=== PATIENT | male | born 1970 | race Caucasian/White ===

== ENCOUNTER 2016-10-30 16:16 | Emergency (ER) | payer SELFPAY ==
--- NOTE | 2016-10-30 17:03 | UC ---
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 No shortness of breath, able to void normally, no nausea or vomiting. Does not feel very well, but was working in attic space at high temperature for about 5 hours. Pain worsened by getting in and out of truck and all movements. Took acetaminophen 1000mg at the time, with a little relief of pain. Hx of abdominal surgery. - History of Current Complaint Chief Complaint: UCAbdominalPain Stated Complaint: LEFT LOWER ABD MUSCLE PULL W/C Time Seen by Provider: 10/30/16 17:01 Hx Obtained From: Patient Onset/Duration: Sudden Onset, Lasting Hours - 4, Still Present Severity Initially: Moderate Severity Currently: Moderate Pain Intensity: 8 Pain Scale Used: 0-10 Numeric Location: Other - left mid abdominal area. Radiates: No Character: Cramping, Sharp Aggravating Factor(s):: Movement Alleviating Factor(s): Rest - Risk Factors Testicular Torsion: Negative Cardiac Risk Factors: Hypertension - Allergies/Home Medications Allergies/Adverse Reactions: Allergies Allergy/AdvReac Type Severity Reaction Status Date / Time No Known Allergies Allergy Verified 10/30/16 16:30 Home Medications: Home Medications NK [No Home Medications Reported] 10/30/16 [History Confirmed 10/30/16] PMH/Surg Hx/FS Hx/Imm Hx - Additional Past Medical History Additional PMH: Has not seen PMD in 4 years, but blood pressures have run high in the past. Not treated. Aware of elevation. History of testicular cancer - Surgical History Surgical History: Yes Surgery Procedure, Year, and Place: testicular surgery - Family History Known Family History: Positive: Respiratory Disease - mother lung CA, Other - father of stroke. - Social History Occupation: Employed Full-time - by [employer] Lives: With Family Alcohol Use: Occasionally Substance Use Type: None Smoking Status (MU): Never Smoked Tobacco Review of Systems Constitutional: Other - pain in the left abdomen with deep inspiration. Feeling unwell, but worked all day in an attic room with high ambient temperature. ENT: Other Cardiovascular: Other - elevated blood pressure in the past, not treated. He has not seen his PMD in about 4 years. No chest pain or shortness of breath. Musculoskeletal: Myalgia - pain in the left abdominal wall. All Other Systems Reviewed And Are Negative: Yes Physical Exam Triage Information Reviewed: Yes Appearance: Pain Distress - moderate with movement., Obese Vital Signs: Initial Vital Signs Temp 99.8 F 10/30/16 16:26 Pulse 95 10/30/16 16:26 Resp 17 10/30/16 16:26 BP 161/73 10/30/16 16:26 Pulse Ox 96 10/30/16 16:26 Vital Signs Reviewed: Yes Eyes: Positive: Conjunctiva Clear ENT: Positive: Pharynx normal Neck: Positive: Supple, Nontender, No Lymphadenopathy Respiratory: Positive: Lungs clear, Normal breath sounds Cardiovascular: Positive: RRR, No Murmur Abdomen Description: Positive: No Organomegaly, Soft, Other: - midline scar epigastrium to above pubis-->no evidence of incisional hernia. Tender to palpation in the lateral oblique muscles. Pain with movement. No abdominal guarding or rebound. Bowel Sounds: Positive: Present Musculoskeletal: Positive: Strength Intact, ROM Limited @ - uncomfortable with flexion at the waist. Neurological Exam: Normal Neurological: Positive: Alert, Muscle Tone Normal Psychological Exam: Normal Skin Exam: Normal Abd Pain Male Course/Dx - Course Course Of Treatment: analgesics and rest. - Differential Dx/Clinical Impression Differential Diagnosis/HQI/PQRI: Other - hernia, muscle strain Provider Diagnoses: strain left abdominal muscles (obliques) Discharge - Discharge Plan Condition: Stable Disposition: HOME Patient Education Materials: Muscle Strain (ED) Forms: *Work Release Referrals: No Primary Care Phys,NOPCP [Primary Care Provider] - Additional Instructions: Today's blood pressure reading was elevated to 161/73, and decreased to 134/87 at discharge (still a little elevated). Please ensure that you schedule a visit with your primary care provider. You can use acetaminophen 100mg up to 4 times per day for pain, and can use additional ibuprofen 600mg 2 or 3 times daily with caution. Ensure that you take it with food. Rest at home tomorrow, anticipate return to work on 11/03/16
[2016-10-30] MEDS ORDERED: Ibuprofen TAB* 400 MG PO ONE (17:23)
[2016-10-30 17:32] VITALS: BP 134/87
== END 2016-10-30 17:42 | disposition home or self-care (01) ==
LOC: UCCORT 16:16
DX: S39.011A Strain of muscle, fascia and tendon of abdomen, initial encounter (principal); X50.0XXA Overexertion from strenuous movement or load, initial encounter; Y93.89 Activity, other specified; Y92.008 Other place in unspecified non-institutional (private) residence as the place of occurrence of the external cause; Y99.0 Civilian activity done for income or pay; E66.9 Obesity, unspecified
CPT/HCPCS: 99202; A9270-GY; G0463

== ENCOUNTER 2017-01-19 07:00 | Emergency (ER) | payer OTHER ==
--- NOTE | 2017-01-19 07:12 | UC ---
Skin Complaint HPI - HPI Summary HPI Summary: 46 yo male stung on right thumb 3 days ago while at work now pain and redness extending to dorsum or hand and radial aspect of forearm - History of Current Complaint Chief Complaint: UCSkin Time Seen by Provider: 01/19/17 07:08 Stated Complaint: RIGHT HAND BEE STING-WC Hx Obtained From: Patient Onset/Duration: Gradual Onset Onset Severity: Moderate Current Severity: Moderate Pain Intensity: 3 Pain Scale Used: 0-10 Numeric Location: Discrete Character: Swelling, Pain, Redness Aggravating: Touch Alleviating: Antihistamines Associated Signs & Symptoms: Positive: Tenderness - Allergy/Home Medications Allergies/Adverse Reactions: Allergies Allergy/AdvReac Type Severity Reaction Status Date / Time No Known Allergies Allergy Verified 01/19/17 07:04 Home Medications: Home Medications diPHENhydraMINE PO* [Benadryl PO 25 MG TAB*] 50 mg PO ONCE PRN 01/19/17 [ History Confirmed 01/19/17] Review of Systems Constitutional: Negative Skin: Negative Eyes: Negative ENT: Negative Respiratory: Negative Cardiovascular: Negative Gastrointestinal: Negative Genitourinary: Negative Motor: Negative Neurovascular: Negative Musculoskeletal: Negative Neurological: Negative Psychological: Negative All Other Systems Reviewed And Are Negative: Yes PMH/Surg Hx/FS Hx/Imm Hx Previously Healthy: Yes Cardiovascular History: Hypertension - never treated Cancer History: Other Other Cancer History: testicular - Surgical History Surgical History: Yes Surgery Procedure, Year, and Place: testicular surgery - Family History Known Family History: Positive: Hypertension, Respiratory Disease - mother lung CA, Other - father of stroke. - Social History Alcohol Use: Occasionally Substance Use Type: None Smoking Status (MU): Current Some Day Smoker Type: Smokeless Tobacco Amount Used/How Often: occasional use Physical Exam Triage Information Reviewed: Yes Appearance: Well-Appearing, No Pain Distress, Well-Nourished Vital Signs: Initial Vital Signs Temp 98.2 F 01/19/17 07:05 Pulse 57 01/19/17 07:05 Resp 16 01/19/17 07:05 BP 155/88 01/19/17 07:05 Pulse Ox 99 01/19/17 07:05 Vital Signs Reviewed: Yes Eyes: Positive: Conjunctiva Clear ENT: Positive: Hearing grossly normal. Negative: Nasal congestion, Nasal drainage, Tonsillar exudate, Trismus, Muffled/hoarse voice Neck: Positive: Supple Respiratory: Positive: Lungs clear, Normal breath sounds, No respiratory distress Cardiovascular: Positive: RRR, No Murmur Course/Dx - Diagnoses Provider Diagnoses: local reaction to insect stings. ? 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
[2017-01-19 07:14] VITALS: BP 155/88
[2017-01-19] MEDS ORDERED: Cephalexin CAP* 500 MG PO ONE (07:17)
[2017-01-19] MEDS ORDERED: predniSONE TAB* 20 MG PO ONE (07:18)
== END 2017-01-19 07:35 | disposition home or self-care (01) ==
LOC: UCCORT 07:00
DX: T63.441A Toxic effect of venom of bees, accidental (unintentional), initial encounter (principal); M79.631 Pain in right forearm; Y92.89 Other specified places as the place of occurrence of the external cause; I10 Essential (primary) hypertension; Z85.47 Personal history of malignant neoplasm of testis; Z72.0 Tobacco use
CPT/HCPCS: 99212; A9270-GY; G0463; J7512

== ENCOUNTER 2017-02-10 10:08 | Emergency (ER) | payer OTHER ==
[2017-02-10] MEDS ORDERED: diPHENhydraMINE IV* 50 MG/ML 1 ml VIAL (BENADRYL) IM ONE (10:13)
[2017-02-10] MEDS ORDERED: methylPREDNISolone 125 MG* 2 ML VIAL IM ONE (10:14)
[2017-02-10] MEDS ORDERED: EPINEPHrine AMP 1 MG/ML IM ONE (10:15)
[2017-02-10 10:43] VITALS: BP 155/87
--- NOTE | 2017-02-10 11:17 | UC ---
Skin Complaint HPI - HPI Summary HPI Summary: Patient presents following a bee sting to the left side of his neck, he complains of a sensation of tightness and closing of his throat. He also states that he has some pain at the site of the sting. He notes no previous allergies or problems from bee stings. - History of Current Complaint Chief Complaint: UCAllergicReaction Time Seen by Provider: 02/10/17 10:11 Stated Complaint: ALLERGIC REACTION Hx Obtained From: Patient Onset/Duration: Sudden Onset Skin Exposure Onset/Duration: Minutes Ago Onset Severity: Moderate Current Severity: Moderate Location: Discrete - left side of neck. Aggravating: Touch Alleviating: Nothing - Allergy/Home Medications Allergies/Adverse Reactions: Allergies Allergy/AdvReac Type Severity Reaction Status Date / Time No Known Allergies Allergy Verified 02/10/17 10:13 Review of Systems Skin: Rash ENT: Other - tighness in throat Respiratory: Negative Cardiovascular: Negative Gastrointestinal: Negative Genitourinary: Negative Neurovascular: Negative Musculoskeletal: Negative All Other Systems Reviewed And Are Negative: Yes PMH/Surg Hx/FS Hx/Imm Hx Previously Healthy: Yes - Surgical History Surgical History: Yes Surgery Procedure, Year, and Place: testicular surgery - Family History Known Family History: Positive: Hypertension, Respiratory Disease - mother lung CA, Other - Social History Occupation: Employed Full-time Alcohol Use: None Substance Use Type: None Smoking Status (MU): Former Smoker Type: Smokeless Tobacco Amount Used/How Often: occasional use Household Exposure Type: Cigarettes Physical Exam Triage Information Reviewed: Yes Appearance: Well-Appearing Vital Signs: Initial Vital Signs Temp 98.0 F 02/10/17 10:10 Pulse 65 02/10/17 10:10 Resp 18 02/10/17 10:10 BP 183/109 02/10/17 10:10 Pulse Ox 96 02/10/17 10:10 Vital Signs Reviewed: Yes Eye Exam: Normal ENT Exam: Normal Neck exam: Normal Neck: Positive: Other: - left anterior base of neck with red, raised circular area, no stinger, or puncture wound noted. Respiratory Exam: Normal Cardiovascular Exam: Normal Abdominal Exam: Normal Musculoskeletal: Positive: Strength Limited @ - left wrist, ROM Limited @ - left wrist, Edema @ - left wrist Course/Dx - Course Course Of Treatment: Patient presents s/p bee sting with tightness in throat, epi 0.3mg, solu-medrol 125mg, and benedryl 50 mg, im was given. Patients symtpoms improved, he was monitored for 30 minutes following with no rebound and was dischared home with additional rx for the same. He was encouraged to go to the er if any other symtpoms returned. at discharge he was stable. - Differential Diagnoses - Skin Complaint Differential Diagnoses: Other - bee sting allergic reaction - Diagnoses Provider Diagnoses: bee sting. allergic reaction Discharge - Discharge Plan Condition: Stable Disposition: HOME Prescriptions: Epinephrine [Epipen 2-Juan] 0.3 mg IM ONCE PRN #1 inj PRN Reason: bee sting Famotidine TAB* [Pepcid 20 MG TAB*] 20 mg PO BID #10 tab diPHENhydraMINE PO* [Benadryl PO 25 MG TAB*] 25 mg PO Q6H PRN #20 tab PRN Reason: allergic reaction predniSONE TAB* [Deltasone TAB*] 20 mg PO DAILY #5 tab Patient Education Materials: Insect Bite or Sting (ED), Allergies (ED) Referrals: No Primary Care Phys,NOPCP [Primary Care Provider] -
== END 2017-02-10 11:15 | disposition home or self-care (01) ==
LOC: UCEAST 10:08
DX: T63.441A Toxic effect of venom of bees, accidental (unintentional), initial encounter (principal); T78.40XA Allergy, unspecified, initial encounter; Z87.891 Personal history of nicotine dependence
CPT/HCPCS: 96372; 99212; G0463; J0171; J1200; J2930

== ENCOUNTER 2018-04-22 07:26 | Emergency (ER) | payer BC, OTHER ==
[2018-04-22 07:40] VITALS: BP 155/99
[2018-04-22] MEDS ORDERED: Azithromycin TAB* 250 MG PO ONE (08:26)
[2018-04-22] MEDS ORDERED: cefTRIAXone VIAL(*) 250 MG VIAL IM ONE (08:26)
[2018-04-22] MEDS ORDERED: Albuterol HFA INHALER* 8 gm MDI INH ONE (08:27)
[2018-04-22] MEDS ORDERED: Lidocaine 1% MPF* 2 ML VIAL INJ ONE (08:33)
[2018-04-22] MEDS ORDERED: cefTRIAXone VIAL(*) 1,000 MG VIAL IM ONE (08:43)
--- NOTE | 2018-04-22 08:43 | ED ---
Respiratory - HPI Summary HPI Summary: pt presents for evaluation of his cough. he states he has been sick for the past 3 weeks. he states his has been sick and he just wants to sleep. he has a productive cough. he states that he has had intermittent occasional wheezing. he denies any chest pain, n/v. - History of Current Complaint Chief Complaint: UCGeneralIllness Stated Complaint: ACHY,COUGH,FATIGUE Hx Obtained From: Patient Onset/Duration: Gradual Onset Initial Severity: Mild Current Severity: Mild Pain Intensity: 8 Character: Wheezing, Cough (Productive) Sputum Amount: Small Sputum Color: Yellow Aggravating Factor(s): URI - Allergy/Home Medications Allergies/Adverse Reactions: Allergies Allergy/AdvReac Type Severity Reaction Status Date / Time No Known Allergies Allergy Verified 04/22/18 07:40 PMH/Surg Hx/FS Hx/Imm Hx Previously Healthy: Yes Endocrine/Hematology History: Denies: Hx Anticoagulant Therapy Respiratory History: Denies: Hx Asthma - Surgical History Surgery Procedure, Year, and Place: testicular surgery Infectious Disease History: No Infectious Disease History: Denies: Traveled Outside the [place] in Last 30 Days - Family History Known Family History: Positive: Hypertension, Respiratory Disease - mother lung CA, Other - Social History Alcohol Use: None Substance Use Type: Reports: None Smoking Status (MU): Former Smoker Type: Smokeless Tobacco Amount Used/How Often: occasional use Review of Systems Positive: Fatigue. Negative: Fever, Chills, Skin Diaphoresis Eyes: Negative ENT: Negative Cardiovascular: Negative Positive: Cough Gastrointestinal: Negative Genitourinary: Negative Musculoskeletal: Negative Skin: Negative Neurological: Negative Psychological: Normal All Other Systems Reviewed And Are Negative: No Physical Exam Triage Information Reviewed: Yes Vital Signs On Initial Exam: Initial Vitals Temp Pulse Resp BP Pulse Ox 98.1 F 78 16 155/99 98 04/22/18 07:36 04/22/18 07:36 04/22/18 07:36 04/22/18 07:36 04/22/18 07:36 Vital Signs Reviewed: Yes Appearance: Positive: Well-Appearing, No Pain Distress, Well-Nourished Skin: Positive: Warm, Dry Head/Face: Positive: Normal Head/Face Inspection Eyes: Positive: Normal, EOMI, BLAINE ENT: Positive: Normal ENT inspection, Hearing grossly normal, Pharynx normal Neck: Positive: Supple, Nontender Respiratory/Lung Sounds: Positive: Clear to Auscultation, Breath Sounds Present Cardiovascular: Positive: Normal, RRR Abdomen Description: Positive: Nontender, Soft Bowel Sounds: Positive: Present Musculoskeletal: Positive: Normal Neurological: Positive: Normal, Sensory/Motor Intact, Alert, Oriented to Person Place, Time, CN Intact II-III Psychiatric: Positive: Normal AVPU Assessment: Alert Diagnostics - Vital Signs Vital Signs Temp Pulse Resp BP Pulse Ox 04/22/18 07:36 98.1 F 78 16 155/99 98 - Laboratory Lab Statement: Any lab studies that have been ordered have been reviewed, and results considered in the medical decision making process. Disposition - Course Course Of Treatment: xray shows a left upper lobe pneumonia. pt is non-toxic. pt was given im rocephin and po azithromycin. pt given spacer and albuterol inhaler with instructions. pt instructed to f/u with pcp by Thursday or go to the closest ED for further evaluation and care. pt given a work excuse for 3 days. - Diagnoses Provider Diagnoses: Pneumonia Discharge - Sign-Out/Discharge Documenting (check all that apply): Patient Departure All imaging exams completed and their final reports reviewed: Yes - Discharge Plan Condition: Stable Disposition: HOME Prescriptions: Azithromyxin MARYBETH (NF) [Z-Marybeth (Zithromax) 250 mg tabs #6] 2 tab PO .TODAY, THEN 1 DAILY #6 tab Patient Education Materials: Bacterial Pneumonia (ED) Referrals: No Primary Care Phys,NOPCP [Primary Care Provider] - [facility] [Provider Group] Additional Instructions: take the antibiotic as instructed. use the inhaler and spacer as instructed. return if worse or any new symptoms. It is imperative to f/u with your primary care physician. if you feel worse or are not better, you should go to the closest emergency dept for further evaluation. - Billing Disposition and Condition Condition: STABLE Disposition: Home
== END 2018-04-22 09:21 | disposition home or self-care (01) ==
LOC: UCCORT 07:26
DX: J18.9 Pneumonia, unspecified organism (principal); Z87.891 Personal history of nicotine dependence
CPT/HCPCS: 71046; 96372; 99213; A9270-GY; G0463; J0696

== ENCOUNTER 2018-05-05 12:18 | Emergency (ER) | payer BC, OTHER ==
--- NOTE | 2018-05-05 13:12 | UC ---
Laceration HPI - HPI Summary HPI Summary: 47 year old male with laceration to right proximal forearm that occurred at work. States he accidentally cut on edge of a sheet metal shelf. Bleeding controlled with direct pressure prior to arrival. Tetanus status unknown. - History Of Current Complaint Chief Complaint: UCLaceration Stated Complaint: ARM LAC Time Seen by Provider: 05/05/18 12:24 Hx Obtained From: Patient Laceration Location: Arm Onset/Duration: Sudden Onset Pain Intensity: 0 Full Body (No Head): 1 - 2 cm laceration with poorly approximated wound edges and exposed adipose tissure. Bleeding controlled. Related History: Occupational Injury, Dominant Hand Right - Allergies/Home Medications Allergies/Adverse Reactions: Allergies Allergy/AdvReac Type Severity Reaction Status Date / Time bee venom protein (honey bee) Allergy Severe Anaphylatic Verified 05/05/18 12:56 Shock PMH/Surg Hx/FS Hx/Imm Hx Previously Healthy: Yes - Denies significant PMH Other History Of: Negative For: Anticoagulant Therapy - Surgical History Surgical History: Yes Surgery Procedure, Year, and Place: testicular surgery - Family History Known Family History: Positive: Hypertension, Respiratory Disease - mother lung CA, Other - Social History Occupation: Employed Full-time Lives: With Family Alcohol Use: Occasionally Substance Use Type: None Smoking Status (MU): Former Smoker Type: Smokeless Tobacco Amount Used/How Often: occasional use Household Exposure Type: Cigarettes Review of Systems All Other Systems Reviewed And Are Negative: Yes Constitutional: Negative: Fever, Chills Skin: Positive: Other - See HPI and diagram Motor: Negative: Decreased ROM, Weakness Neurovascular: Negative: Decreased Sensation Musculoskeletal: Positive: Negative Is Patient Immunocompromised?: No Physical Exam Triage Information Reviewed: Yes Appearance: Well-Appearing, No Pain Distress, Well-Nourished Vital Signs: Initial Vital Signs Temp 98.5 F 05/05/18 12:50 Pulse 83 05/05/18 12:50 Resp 18 05/05/18 12:50 BP 179/106 05/05/18 12:50 Pulse Ox 94 05/05/18 12:50 Respiratory: Positive: Lungs clear, Normal breath sounds, No respiratory distress Cardiovascular: Positive: RRR, No Murmur, Pulses Normal, Brisk Capillary Refill Musculoskeletal: Positive: Strength Intact, ROM Intact, No Edema Neurological: Positive: Alert, Other: - Sensation intact distally Skin: Positive: Significant Lesion(s) - See diagram Laceration Repair - Laceration Repair 1 Procedure Summary: Procedure note: Laceration repair right forearm Informed consent was obtained before procedure started and the appropriate timeout was taken. Local anesthesia was achieved using 5 ml of lidocaine 1% without epinephrine. The wound was copiously irrigated with 500 ml sterile saline. The wound was thoroughly explored and no foreign body noted. Exposed adipose tissue was sharply excised using iris scissors. The wound margins were brought into good alignment and 3 interrupted sutures were placed using 4-0 Ethilon. Estimated blood loss was minimal. A dressing was applied to the area. Anticipatory guidance, as well as standard post-procedure care was discussed with patient. Return precautions are given. The patient tolerated the procedure well without complications. Patient is to follow up in 10-14 days for suture removal and evaluation of the laceration. Description: Linear Laceration Size After Repair: Length (cm) - 2 cm Contamination/FB Removal: None Modified For Repair: Yes - Adipose tissue sharply excised Anesthesia Used: 1.0% Lido Cleansing Completed Via Routine Prep: Yes Irrigation With Pressure Irrigation Device: Yes Closure Material: Sutures Closure Method: Single Layer Suture Of: Skin Suture Type: Nylon Laceration Course/Dx - Course/Dx Course Of Treatment: 47 year old male presents with laceration to proximal right forearm that occurred at work when he accidentally cut on a metal shelf. Bleeding was controlled with direct pressure prior to arrival. The wound was irrigated and repaired with 3 interrupted sutures using 4-0 Ethilon. Dressing applied by RN. Tetanus updated. Wound care and warning symptoms were reivewed with patient. He is to return in 10-14 days for suture removal. Verbalizes understanding and agrees with POC. - Differential Dx - Laceration/Wound Provider Diagnoses: left arm laceration, elevated blood pressure reading Discharge - Sign-Out/Discharge Documenting (check all that apply): Patient Departure All imaging exams completed and their final reports reviewed: No Studies - Discharge Plan Condition: Stable Disposition: HOME Patient Education Materials: Care For Your Stitches (ED), Laceration (ED) Referrals: No Primary Care Phys,NOPCP [Primary Care Provider] - [facility] [place] [facility] [Outside] Additional Instructions: Leave the dressing that was applied in the clinic in place for the next 24 hours. Be sure to keep this clean and dry. After 24 hours you may remove the dressing and shower and wash your hands as normal. Avoid submerging you hand under water such as in taking a bath, swimming, or washing dishes until the sutures are removed. You should apply some antibiotic ointment such as Bacitracin to the wound and cover with a clean gauze dressing. This dressing should be changed at least once a day or any time it becomes wet or soiled. Your tetanus was updated in the clinic today. Be sure to contact your primary care provider to let them know so that your records can be updated. The numbing medication used to repair your laceration will begin to wear off in about 3-4 hours. You may use acetaminophen (Tylenol) or ibuprofen (Advil, Motrin ) according to directions as needed for pain. Return here in 10-14 days for suture removal. Watch for signs of infection including fever greater than 100.5 F, redness that spreads, swelling of the hand, pain that is not managed with pain medication, numbness or tingling in the hand or fingers, or pus draining from the wound. Seek immediate medical attention should any of these occur. You blood pressure was elevated in the clinic today. It is recommended that you have this rechecked by a primary care provider within the next 4 weeks. I have given you the number for the [facility] Physician Referral Service if you need assistance with establishing with a provider. - Billing Disposition and Condition Condition: STABLE Disposition: Home
[2018-05-05] MEDS ORDERED: Tetan/Diph/Pertus SYR(Tdap)* 0.5 ML SYR(BOOSTRIX) use SYR IM ONE (13:15)
[2018-05-05] MEDS ORDERED: Lidocaine 1%* 5 ML VIAL INJ ONE (13:15)
[2018-05-05 14:17] VITALS: BP 161/92
== END 2018-05-05 14:20 | disposition home or self-care (01) ==
LOC: UCEAST 12:18
DX: S51.811A Laceration without foreign body of right forearm, initial encounter (principal); W45.8XXA Other foreign body or object entering through skin, initial encounter; Y92.9 Unspecified place or not applicable; Y99.0 Civilian activity done for income or pay; Z23 Encounter for immunization; R03.0 Elevated blood-pressure reading, without diagnosis of hypertension; Z91.030 Bee allergy status; Z87.891 Personal history of nicotine dependence
CPT/HCPCS: 12031; 90471; 90715; 99211; G0463

== ENCOUNTER 2018-08-24 09:38 | Emergency (ER) | payer BC ==
--- NOTE | 2018-08-24 10:28 | UC ---
Respiratory Complaint HPI - HPI Summary HPI Summary: 47 yo male presents with sore throat, b/l earache, body aches, sinus pain/ pressure/congestion, and productive cough over the last 4-5 days. He tells me that he had pneumonia about 3-4 months and this feels similar. He is sick with similar symptoms. He does not smoke, but his does and is around her a lot. He has been taking mucinex OTC with little relief. Has felt feverish, but has not taken his temperature. Denies SOB, chest pain, abdominal pain, n/v. - History of Current Complaint Chief Complaint: UCRespiratory Stated Complaint: CHEST CONGEST Time Seen by Provider: 08/24/18 10:28 Hx Obtained From: Patient Onset/Duration: Gradual Onset Severity Initially: Moderate Severity Currently: Severe Pain Intensity: 10 Character: Cough: Productive - Allergies/Home Medications Allergies/Adverse Reactions: Allergies Allergy/AdvReac Type Severity Reaction Status Date / Time bee venom protein (honey bee) Allergy Severe Anaphylatic Verified 08/24/18 10:07 Shock Home Medications: Home Medications Acetaminophen [Tylenol Extra Strength] 1,500 mg PO ONCE PRN 08/24/18 [History Confirmed 08/24/18] guaiFENesin [Mucinex] 1 tab PO ONCE PRN 08/24/18 [History Confirmed 08/24/18] PMH/Surg Hx/FS Hx/Imm Hx Cardiovascular History: Hypertension Other History Of: Negative For: Anticoagulant Therapy - Surgical History Surgical History: Yes Surgery Procedure, Year, and Place: testicular surgery - Family History Known Family History: Positive: Hypertension, Respiratory Disease - mother lung CA, Other - Social History Occupation: Employed Full-time Lives: With Family Alcohol Use: Occasionally Substance Use Type: None Smoking Status (MU): Former Smoker Type: Smokeless Tobacco Amount Used/How Often: occasional use Household Exposure Type: Cigarettes Review of Systems All Other Systems Reviewed And Are Negative: Yes Constitutional: Positive: Chills, Fatigue, Other - Body aches Skin: Positive: Negative Eyes: Positive: Negative ENT: Positive: Sore Throat, Ear Ache, Nasal Discharge, Sinus Congestion, Sinus Pain/Tenderness Respiratory: Positive: Cough Cardiovascular: Positive: Negative Gastrointestinal: Positive: Negative Neurovascular: Positive: Negative Neurological: Positive: Negative Psychological: Positive: Negative Physical Exam - Summary Physical Exam Summary: GENERAL: NAD. WDWN. No pain distress. SKIN: No rashes, sores, lesions, or open wounds. HEENT: Head: AT/NC Eyes: EOM intact. Conjunctiva clear without inflammation or discharge. Ears: Hearing grossly normal. TMs intact, no bulging, erythema, or edema. Nose: Nasal mucosa mildly swollen and erythematous with yellow/ clear discharge. TTP maxillary and frontal sinus. Positive post nasal drip Throat: Posterior oropharynx without exudates, erythema, or tonsillar enlargement. Uvula midline. NECK: Supple. Nontender. No lymphadenopathy. CHEST: CTAB. No r/r/w. No accessory muscle use. Breathing comfortably and in no distress. CV: RRR. Without m/r/g. Pulses intact. NEURO: Alert. PSYCH: Age appropriate behavior. Triage Information Reviewed: Yes Vital Signs: Initial Vital Signs Temp 99.4 F 08/24/18 10:03 Pulse 93 08/24/18 10:03 Resp 18 08/24/18 10:03 BP 193/115 08/24/18 10:03 Pulse Ox 97 08/24/18 10:03 Laboratory Tests 08/24/18 10:35 Influenza A (Rapid) Negative Influenza B (Rapid) Negative Vital Signs Reviewed: Yes Respiratory Course/Dx - Course Course Of Treatment: CXR: IMPRESSION: NO EVIDENCE FOR ACTIVE CARDIOPULMONARY DISEASE. POC flu negative. Suspect sinusitis vs viral syndrome. Pt prefers to be on antibiotics at this time. His BP is elevated today. He tells me that he was on blood pressure medication, but stopped taking it because it didn't want to take it anymore. I advised him to take his medications as prescribed and f/u with his PCP as soon as possible. - Differential Dx/Diagnosis Provider Diagnosis: Sinusitis Discharge - Sign-Out/Discharge Documenting (check all that apply): Patient Departure All imaging exams completed and their final reports reviewed: Yes - Discharge Plan Condition: Stable Disposition: HOME Prescriptions: Azithromycin TAB* [Zithromax TAB (Z-MARYBETH) 250 mg #6 tabs] 2 tab PO .TODAY, THEN 1 DAILY #1 marybeth Patient Education Materials: Acute Bronchitis (ED) Forms: *Work Release Referrals: No Primary Care Phys,NOPCP [Primary Care Provider] - Additional Instructions: If you develop a fever, shortness of breath, chest pain, new or worsening symptoms - please call your PCP or go to the ED. Your blood pressure was high at todays visit. Please see your primary provider within 4 weeks for recheck and re-evaluation. - Billing Disposition and Condition Condition: STABLE Disposition: Home
[2018-08-24 10:29] VITALS: BP 200/100
[2018-08-24 10:47] LABS: Influenza A Molecular NEGATIVE (Negative); Influenza B Molecular NEGATIVE (Negative)
== END 2018-08-24 11:53 | disposition home or self-care (01) ==
LOC: UCEAST 09:38
DX: J32.9 Chronic sinusitis, unspecified (principal); Z91.030 Bee allergy status; Z87.891 Personal history of nicotine dependence
CPT/HCPCS: 71046; 99212; G0463